=== PATIENT | male | born 1990 | race Caucasian/White ===

== ENCOUNTER 2017-12-09 09:00 | Emergency (ER) | payer OTHER ==
[2017-12-09 09:12] VITALS: BP 137/78
[2017-12-09] MEDS ORDERED: IBUPROFEN 400 MG TABLET PO STA (09:27)
[2017-12-09] MEDS ORDERED: LIDOCAINE PATCH 5% TOP STA (09:27)
--- NOTE | 2017-12-09 09:31 | ED Physician Documentation ---
History of Present Illness - Stated complaint Stated Complaint: UPPER BACK SHOULDER BLADE PX - Chief complaint Chief Complaint: Back Pain - Additonal information Additional information: hx from pt AD [place] healthy smoker to ER with L upper back pain X 2-3 days described as achey and under the tip of the L scapula worse with ROM of L shoulder no trauma or overuse recalled no CP SOA or sig cough no abd pain no LE edema no fhx CAD Review of Systems Constitutional: denies: Fever Cardiac: denies: Chest pain / pressure Respiratory: denies: Dyspnea, Cough GI: denies: Abdominal Pain Musculoskeletal: reports: Back pain. denies: Extremity swelling Endocrine: denies: Easy bruising / bleeding Immunocompromised: denies: Immunocompromised PD PAST MEDICAL HISTORY - Present Medications Home Medications: Ambulatory Orders Medication Instructions Recorded Confirmed Carisoprodol [Soma] 350 mg PO Q8H PRN #15 tablet 12/09/17 Ibuprofen [Motrin] 400 mg PO Q6H PRN #30 tablet 12/09/17 Lidocaine Patch 5% [Lidoderm Patch] 1 each TOP DAILY PRN #10 patch 12/09/17 traMADol [Ultram] 50 mg 12/09/17 - Allergies Allergies/Adverse Reactions: Allergies Allergy/AdvReac Type Severity Reaction Status Date / Time acetaminophen [From Vicodin] AdvReac Rash Verified 12/09/17 09:12 hydrocodone [From Vicodin] AdvReac Rash Verified 12/09/17 09:12 PD ED PE NORMAL - Vitals Vital signs reviewed: Yes - General General: Alert and oriented X 3 - HEENT HEENT: PERRL - Neck Neck: Supple, no meningeal sign - Cardiac Cardiac: RRR, No murmur - Respiratory Respiratory: No respiratory distress, Clear bilaterally - Abdomen Abdomen: Soft, Non tender, Other (no LUQ TTP or splenomegaly) - Back Back: Other (soft tissue TTP medial and inf and overling L scapula, but mostly hurts with ROM of shoulder, no deformity, no spinal TTP rednes warmth or swelling) - Derm Derm: Normal color, No rash (no shingles) - Neuro Neuro: Alert and oriented X 3, No motor deficit Results - Vitals Vitals: Vital Signs - 24 hr 12/09/17 09:10 Temperature 36.3 C L Heart Rate 75 Respiratory 15 Rate Blood Pressure 137/78 H O2 Saturation 97 Oxygen O2 Source Room air - Rads (name of study) CXR Radiology: See rad report (normal) Departure - Departure Disposition: 01 Home, Self Care Clinical Impression: Back pain Qualifiers: Back pain location: thoracic back pain Chronicity: acute Back pain laterality: left Qualified Code(s): M54.6 - Pain in thoracic spine Condition: Good Instructions: ED Neck Back Pain General Follow-Up: [facility] Thiago Ross [Provider Group] Prescriptions: Carisoprodol [Soma] 350 mg PO Q8H PRN #15 tablet PRN Reason: muscle spasm Ibuprofen [Motrin] 400 mg PO Q6H PRN #30 tablet PRN Reason: Pain Lidocaine Patch 5% [Lidoderm Patch] 1 each TOP DAILY PRN #10 patch PRN Reason: Pain Comments: The xray is fine. Normal lungs, no sign of cancer or infection. Normal appearing ribs and scapula. Normal size heart and aorta. Your exam indicates this pain is muscular in etiology though there was no specific injury. Recommend you try the lidocaine patches (apply one to the most painful spot for up to 12 hr a day) and motrin for the pain and soma to relax the muscles. Follow up at [facility] if not better by next week Return to the ER if worse over the weekend (develop chest or abdominal pain or shortness of breath or numbness or weakness or a rash) Forms: Activity restrictions
--- NOTE | 2017-12-09 09:59 | XRAY Preliminary Report ---
Exam: XR CHEST 2 VIEW X-RAY IMPRESSION: Normal 2-view chest radiography. [facility] SITE ID: [id number]
--- NOTE | 2017-12-09 09:59 | XRAY Report ---
EXAM: CHEST RADIOGRAPHY EXAM DATE: 12/09/2017 09:39 AM. CLINICAL HISTORY: L upper back pain. COMPARISON: None. TECHNIQUE: 2 views. Grid cutoff artifact on the lateral view. FINDINGS: Lungs/Pleura: No focal opacities evident. No pleural effusion. No pneumothorax. Normal volumes. Mediastinum: Heart and mediastinal contours are unremarkable. Other: The bones are unremarkable. IMPRESSION: Normal 2-view chest radiography. [facility] Referring Provider Line: [phone] SITE ID: [id number]
== END 2017-12-09 10:13 | disposition home or self-care (01) ==
LOC: ED 09:00
DX: M54.6 Pain in thoracic spine (principal); F17.200 Nicotine dependence, unspecified, uncomplicated
CPT/HCPCS: 71046; 99283; A9270

== ENCOUNTER 2019-10-29 12:10 | Emergency (ER) | payer OTHER ==
--- NOTE | 2019-10-29 13:00 | ED Physician Documentation ---
PD HPI CHEST PAIN - Stated complaint Stated Complaint: CHEST PX - Chief complaint Chief Complaint: Cardiac - History obtained from History obtained from: Patient, Family - History of Present Illness Timing - onset: Yesterday Timing - duration: Days (1) Timing - details: Gradual onset (1) Pain level max: 3 Pain level now: 2 Quality: Sharp Location: Left chest Radiation: No: Jaw, Neck, Back, Abdominal, Left upper extremity, Right upper extremity Improved by: Nothing Worsened by: Movement, Palpation. No: Exertion, Inspiration, Eating, Position Associated symptoms: No: Shortness of air, Diaphoresis, Nausea, Vomiting, Feeling faint / dizzy, General Weakness, Palpitations, Cough Similar symptoms before: Has not had sx before Review of Systems Constitutional: denies: Fever, Chills GI: denies: Vomiting, Diarrhea Skin: denies: Rash Musculoskeletal: denies: Neck pain, Back pain Neurologic: denies: Headache PD PAST MEDICAL HISTORY - Past Medical History Past Medical History: Yes Cardiovascular: None Respiratory: None Neuro: None Endocrine/Autoimmune: None GI: None : None HEENT: None Psych: Anxiety, ADD/ADHD Musculoskeletal: Chronic back pain, Other Derm: None Other Past Medical History: cronic ankle pain. insomnia - Past Surgical History Past Surgical History: Yes Ortho: Other - Present Medications Home Medications: Ambulatory Orders Medication Instructions Recorded Confirmed Carisoprodol [Soma] 350 mg PO Q8H PRN #15 tablet 12/09/17 Ibuprofen [Motrin] 400 mg PO Q6H PRN #30 tablet 12/09/17 Lidocaine Patch 5% [Lidoderm Patch] 1 each TOP DAILY PRN #10 patch 12/09/17 traMADol [Ultram] 50 mg 12/09/17 - Allergies Allergies/Adverse Reactions: Allergies Allergy/AdvReac Type Severity Reaction Status Date / Time acetaminophen [From Vicodin] AdvReac Rash Verified 10/29/19 12:19 hydrocodone [From Vicodin] AdvReac Rash Verified 10/29/19 12:19 - Social History Does the pt smoke?: No Smoking Status: Former smoker Does the pt drink ETOH?: Yes Does the pt have substance abuse?: No - Immunizations Immunizations are current?: Yes - POLST Patient has POLST: No PD ED PE NORMAL - Vitals Vital signs reviewed: Yes - General General: Alert and oriented X 3, No acute distress - HEENT HEENT: Moist mucous membranes - Neck Neck: Supple, no meningeal sign - Cardiac Cardiac: RRR, Strong equal pulses, Other (TTP over the L anterior chest wall. no crepitus. no ecchymosis) - Respiratory Respiratory: No respiratory distress, Clear bilaterally - Abdomen Abdomen: Soft, Non tender, Non distended - Back Back: No spinal TTP - Derm Derm: Warm and dry, No rash - Extremities Extremities: No edema, No calf tenderness / cord - Neuro Neuro: Alert and oriented X 3, counterintelligence/humint specialist 2-12 intact, No motor deficit, No sensory deficit, Normal speech - Psych Psych: Normal mood, Normal affect Results - Vitals Vitals: Vital Signs - 24 hr 10/29/19 10/29/19 10/29/19 12:15 12:35 13:06 Temperature 36.0 C L 36.5 C Heart Rate 92 75 Respiratory 14 18 Rate Blood Pressure 167/104 H 138/68 H Blood Pressure 158/92 H [Left] O2 Saturation 98 99 Oxygen O2 Source Room air - EKG (time done) 1213 Rate: Rate (enter#) (85) Rhythm: NSR [place]: LAD Intervals: Normal [place] QRS: Normal Ischemia: Normal ST segments PD MEDICAL DECISION MAKING - ED course Complexity details: reviewed results, considered differential (No ST elevation [place], no aortic dissection, no PE, no tension pneumothorax, no aortic aneurysm), d/w patient ED course: 29-year-old male with what appears to be costochondritis. No evidence of acute coronary syndrome or pulmonary embolus. We will treat symptomatically. Patient counseled regarding signs and symptoms for which I believe and urgent re- evaluation would be necessary. Patient with good understanding of and agreement to plan and is comfortable going home at this time This document was made in part using voice recognition software. While efforts are made to proofread this document, sound alike and grammatical errors may occur. Departure - Departure Disposition: Home, Self Care Clinical Impression: Chest wall pain Condition: Good Instructions: ED Chest Pain Costochondritis Follow-Up: Ji Lanier MD [Primary Care Provider] - Within 1 week Comments: You can use Motrin or Tylenol as needed for pain at home. follow-up with your doctor for further care. Discharge Date/Time: 10/29/19 13:12
[2019-10-29 13:09] VITALS: BP 138/68
== END 2019-10-29 13:12 | disposition home or self-care (01) ==
LOC: ED 12:10
DX: R07.89 Other chest pain (principal); Z87.891 Personal history of nicotine dependence
CPT/HCPCS: 93005; 99282; 99283